=== PATIENT | female | born 1985 | race Caucasian/White ===

== ENCOUNTER → 2021-06-01 | Outpatient (CLI) | payer OTHER, SELFPAY | END | disposition home or self-care (01) | LOC: LABSPEC 06-05 10:59 | PROVIDERS: Visit Provider Physician Assistant | DX: U07.1 COVID-19 (principal) | CPT/HCPCS: 87635; U0005; U0003 ==

== ENCOUNTER 2022-01-31 18:00 | Outpatient (RCR) | payer OTHER, SELFPAY ==
--- NOTE | 2021-12-27 18:53 | HP.PTEVAL_ITS ---
Patient's Visit Information SOPHIE HICKS is a 36 year old F referred to Physical Therapy by Dr. Shaka Ruth DO with a diagnosis of Pain in R ankle joint and foot.. Date of Evaluation: 12/27/21 Physical Therapist: REJI Rausch - Visit Plan Frequency: 1x/Week Duration: 6 Weeks Plan: 1X/ week for 6 weeks for R ankle DF mobs, gait training, strengthening, stretching of R HS, achilles with HEP. Step DF stretch, self mobilzation as pt wants more HEP due to high insurance cost. - Subjective In 2009 she broke her R ankle in 3 spots (screws and plates) and was in a boot. She did some PT and did not continue with it. She still has issues with her R ankle. She is getting older and she knows that it is not getting better and she is at that point she needs it to get better. She has no mobility in her ankle. Dr ruth said he would like to remove everything but wants to go through PT first becuse he thinks her achilles tendon is locked up. He wants PT for 2-3 months because removing the hardware will not fix anything. She has decrease motion and pain and swelling and hurts along the medial side of her ankle. Couple of weeks ago her ankle felt like it needed to pop and she is getting a catching sharp pain all of the sudden. - Pain R ankle pain Pain Intensity (Out of 10): 2 - Objective Gait: Walks with decrease R push off and decreased stance time on the R LE. R foot is slightly forefoot abd with gait. OHS: only can squat 1/4 normal ROM due to decrease ankle ROM on the R side into DF. R ankle AROM: -5 degrees DF 44 degrees, 11 INV and 10 EV. L ankle AROM: 4 degrees DF, PF 46 degrees, 24 INV, 7 EV. R girth measurements: Fig 8 52.5 med-lat 25. L girth measurements: Fig 8 51.5, med-lat 24.4,. Pt has a lot of forefoot motion as opposed to ankle joint ROM. SLB 20 R and SLB L 30 - Balance/Special Test Scores Lower Extremity Functional Score: 51 - Goals Goal 1:: I HEP Goal Time Frame: 6-8 Weeks Goal 2:: Increase R ankle AROM to neutral DF on the R Goal Time Frame: 6-8 Weeks Goal 3:: Be able to walk with normal heel to toe gait pattern on the R with no forefoot abd Goal Time Frame: 6-8 Weeks - Rehabilitation Potential Rehabilitation Potential: Good - Anticipated Interventions Patient/Client Instruction: Educate patient on: Condition, Plan of Care For the Purpose of:: To decrease pain, To decrease swelling/inflammation, To increase ROM, To improve nutrient delivery to tissue, To improve muscle perfor florian and motor function, To improve ability to perform ADL's, To increase tolerance to activity/condition/position, To improve performance and independence with ADL's, To decrease level of supervision to perform tasks, To improve ability of physical actions for home/community/work/leisure, To improve gait and locomotor functions, To improve health of tissue, To decrease soft tissue restriction, To increase flexibility/ROM, To improve endurance, To improve balance, To improve safety with gait Therapeutic Exercise to Include: Strength training, Endurance training, Balance training, Coordination, Postural training, Flexibilty training, Gait and locomotor training, Neuromotor development, Passive ROM, Active ROM For the Purpose of:: To decrease pain, To decrease swelling/inflammation, To increase ROM, To improve nutrient delivery to tissue, To increase oxygenation perfusion, To improve muscle performance and motor function, To improve ability to perform ADL's, To increase tolerance to activity/condition/position, To improve performance and independence with ADL's, To decrease level of supervision to perform tasks, To improve ability of physical actions for home/community/work/leisure, To improve gait and locomotor functions, To improve health of tissue, To decrease soft tissue restriction, To increase flexibility/ROM, To improve balance, To improve safety with gait Functional Training to Include: Gait training For the Purpose of:: To improve gait and locomotor functions Thank you for the opportunity to evaluate your patient. For Medicare and Medicare HMO plans, please review the plan of care and approve it. It will need to be FAXED BACK to us at [phone] for Medicare purposes. For Medicare only, by signing this I certify the plan of care. Please let me know if there are questions or concerns regarding this plan of care. Physician Sign ature: Date:
--- NOTE | 2022-06-11 10:30 | HP.PTDCSUM ---
It has been my pleasure to treat SOPHIE HICKS referred by Dr. Shaka Sultana DO, with the diagnosis of Pain in R ankle joint and foot. for a total of 3 visit(s). Discharge Date: 06/11/22 Please see the following information for a summary of their discharge status. Subjective: She got a foam roller but it is spiky and those hurt. Pt has been bad at doing her HEP. Pt sees the Dr again February 22. Pt not sure if she has gained a whole lot of motion. Pt wishes to continue to do stuff at home for HEP. R ankle pain Pain Intensity (Out of 10): 0 % Improvement: 20 Objective/Function: Pt was sore after treatment today. R ankle DF 1 degree. Pt walks with less forefoot abd on the R. Goal 1:: I HEP Goal Progress: Goal Met Goal 2:: Increase R ankle AROM to neutral DF on the R Goal 3:: Be able to walk with normal heel to toe gait pattern on the R with no forefoot abd Plan: DC PT to HEP per pt wishes Discharge Comments: DC PT to HEP If there are questions or concerns regarding this patient's physical therapy, please feel free to call me at [phone]. Thank you for the referral of this patient. Sincerely, Carmela Andres, MPT Balance/Gait/Functional tests - Balance/Special Test Scores Lower Extremity Functional Score: 60
== END 2022-01-31 19:00 | disposition home or self-care (01) ==
LOC: PT 18:00
PROVIDERS: Referring Provider Orthopaedic Surgery; Visit Provider Orthopaedic Surgery
DX: M25.571 Pain in right ankle and joints of right foot (principal)
CPT/HCPCS: 97110; 97161

== ENCOUNTER → 2022-09-13 | Outpatient (CLI) | payer OTHER, SELFPAY | END | disposition home or self-care (01) | LOC: LABSPEC 10:32 | PROVIDERS: Visit Provider Physician Assistant | DX: N61.1 Abscess of the breast and nipple (principal) | CPT/HCPCS: 87070; 87075; 87205 ==